=== PATIENT | female | born 1990 | race Caucasian/White ===

== ENCOUNTER 2017-10-29 22:52 | Emergency (ER) | payer SELFPAY ==
[~2017-10-29] VITALS: Ht 154.9 cm; Wt 58.2 kg
[2017-10-30] MEDS ORDERED: DiphenhydrAMINE HCL 25 MG CAPSULE PO ONE (00:30)
[2017-10-30] MEDS ORDERED: PredniSONE 20 MG TABLET PO ONE (00:30)
[2017-10-30 00:59] VITALS: BP 119/79
== END 2017-10-30 01:00 | disposition home or self-care (01) ==
LOC: EMS 22:53
DX: L50.9 Urticaria, unspecified (principal)
CPT/HCPCS: 99283; J7512